=== PATIENT | male | born 1955 | race Caucasian/White ===

== ENCOUNTER 2017-01-09 06:35 | Emergency (ER) | payer BC ==
[2017-01-09 06:44] VITALS: BP 171/99
[2017-01-09] MEDS ORDERED: HYDROmorphone 0.5 MG/0.5 ML Syringe IVPUSH ONE (06:45)
[2017-01-09] MEDS ORDERED: Ketorolac 30 MG/ML SDV IVPUSH SCH (06:45)
[2017-01-09] MEDS ORDERED: Sodium Chloride 0.9% 1,000 ML IV SCH (06:45)
[2017-01-09] MEDS ORDERED: Metoclopramide 10 MG/2 ML SDV IVPUSH ONE (06:45)
--- NOTE | 2017-01-09 06:46 | EDM.PDOC ---
ED HPI GENERAL MEDICAL PROBLEM - General Chief Complaint: Genitourinary Problem Stated Complaint: BACK PAIN POSS KIDNEY STONE Time Seen by Provider: 01/09/17 06:39 Source of Information: Reports: Patient History Limitations: Reports: No Limitations - History of Present Illness INITIAL COMMENTS - FREE TEXT/NARRATIVE: 61-year-old male presents to the ED with acute onset of severe left flank pain that started in the night the day prior. 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 Tomorrow awake most of the night is vomited 3 times. Pain has not radiated into the abdomen or down into the groin. He has no history of kidney stones. No injuries to his back. No associated fever or chills. No no noted changes in color of the urine. Onset: Sudden Onset Date: 01/08/17 Duration: Hour(s):, Getting Worse Location: Reports: Back Quality: Reports: Ache, Stabbing, Throbbing Severity: Severe (Current pain is rated as 8-9 out of 10.) Improves with: Reports: None Worsens with: Reports: None Context: Denies: Activity, Exercise, Lifting, Sick Contact, Trauma, Other Associated Symptoms: Reports: Nausea/Vomiting (Vomited 3 times overnight.). 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 (Motrin seems to take the edge off the pain.) Left Flank Pain Score (Numeric/FACES): 7 - Related Data Allergies Allergy/AdvReac Type Severity Reaction Status Date / Time No Known Allergies Allergy Verified 01/09/17 06:44 Home Meds: Home Meds Ondansetron [Zofran ODT] 4 mg PO Q6H #5 tab.dis 01/09/17 [Rx] oxyCODONE HCl/Acetaminophen [Percocet 5-325 mg Tablet] 1 - 2 each PO Q4H PRN # 12 tablet 01/09/17 [Rx] Social & Family History - Living Situation & Occupation Living situation: Reports: Occupation: Employed ED ROS GENERAL - Review of Systems Review Of Systems: See Below Constitutional: Reports: Fatigue. Denies: Fever, Chills, Malaise, Weakness HEENT: Reports: No Symptoms (From not sleeping all night.) Respiratory: Reports: No Symptoms Cardiovascular: Reports: No Symptoms Endocrine: Reports: No Symptoms GI/Abdominal: Reports: No Symptoms. Denies: Abdominal Pain : Reports: Frequency, Urgency Musculoskeletal: Reports: Back Pain (Left flank constant throbbing pain with occasional worsening of the pain I colicky component) Skin: Reports: No Symptoms Neurological: Reports: No Symptoms Psychiatric: Reports: No Symptoms ED EXAM, RENAL/ - Physical Exam Exam: See Below Exam Limited By: No Limitations General Appearance: Alert, Moderate Distress (In obvious pain and discomfort.) Eye Exam: Bilateral Eye: Normal Inspection (No jaundice.) Throat/Mouth: Normal Inspection, Normal Oropharynx Head: Atraumatic, Normocephalic Neck: Normal Inspection, Supple, Non-Tender, Full Range of Motion. No: Lymphadenopathy (L), Lymphadenopathy (R) Respiratory/Chest: No Respiratory Distress, Lungs Clear, Normal Breath Sounds, No Accessory Muscle Use Cardiovascular: Normal Peripheral Pulses, Regular Rate, Rhythm, No Edema, No Gallop, No Murmur GI/Abdominal: Normal Bowel Sounds, Soft, Non-Tender, No Organomegaly (Male) Exam: No Hernia Back Exam: CVA Tenderness (L). No: CVA Tenderness (R) (Mild), Decreased Range of Motion, Muscle Spasm Extremities: Normal Inspection, Normal Range of Motion, Non-Tender, No Pedal Edema, Normal Capillary Refill Neurological: Alert, Oriented, CN II-XII Intact, Normal Cognition, Normal Gait Psychiatric: Normal Affect, Normal Mood Skin Exam: Warm, Dry, Intact, Normal Color, No Rash Course - Vital Signs Last Recorded V/S: Last Vital Signs Temp 36.2 C 01/09/17 06:42 Pulse 87 01/09/17 06:42 Resp 16 01/09/17 06:42 BP 171/99 H 01/09/17 06:42 Pulse Ox 95 01/09/17 06:42 - Orders/Labs/Meds Orders: Active Orders 24 hr Category Date Time Status Abdomen Pelvis wo Cont [CT] Stat Exams 01/09/17 06:39 Ordered URINALYSIS W/MICROSCOPIC [UA W/MICROSCOPIC] [URIN] Stat Lab 01/09/17 06:46 Uncollected Ketorolac [Toradol] Med 01/09/17 06:45 Active 30 mg IVPUSH ONETIME Sodium Chloride 0.9% [Normal Saline] 1,000 ml Med 01/09/17 06:45 Active IV ASDIRECTED Medication Orders Sodium Chloride (Normal Saline) 1,000 mls @ 150 mls/hr IV ASDIRECTED SILVANO Ketorolac Tromethamine (Toradol) 30 mg IVPUSH ONETIME SILVANO Meds: Medications Generic Name Dose Route Start Last Admin Trade Name Freq PRN Reason Stop Dose Admin Sodium Chloride 1,000 mls @ 150 mls/hr 01/09/17 06:45 Normal Saline IV ASDIRECTED SILVANO Ketorolac Tromethamine 30 mg 01/09/17 06:45 Toradol IVPUSH ONETIME SILVANO Discontinued Medications Generic Name Dose Route Start Last Admin Trade Name Freq PRN Reason Stop Dose Admin Hydromorphone HCl 0.25 mg 01/09/17 06:45 Dilaudid IVPUSH 01/09/17 06:46 ONETIME ONE Metoclopramide HCl 7.5 mg 01/09/17 06:45 Reglan IVPUSH 01/09/17 06:46 ONETIME ONE - Radiology Interpretation Free Text/Narrative:: 61-year-old male attends the ED with acute onset of left flank pain yesterday morning. He worked throughout the day yesterday but after he got off work the pain intensified substantially. He was unable to sleep most of last night. He's vomited 3 times in the last 6 hours. Pain is currently 9 of the 10. Motrin has helped up until this morning. Clinically he appears to be experiencing left renal colic. He has no history of renal stones. Benign abdominal examination although hypoactive bowel sounds are evident. Plan CT of the abdomen and pelvis per renal protocol given IV fluids 150 mils per hour and Toradol 30 mg IV with Dilaudid 0.25 mg IV and Reglan 7.5 mg IV. - Re-Assessments/Exams Free Text/Narrative Re-Assessment/Exam: 01/09/17 07:18 CT scan of abdomen and pelvis performed. Gallbladder and liver appear normal pancreas appears normal. The right kidney also appears normal. The left kidney is grossly enlarged with significant perinephric hydronephrosis and fluid. There is a 2 mm stone obstructing the distal ureter. Stone has proximal be an inch to travel before would be in the urinary bladder. Patient will continue Motrin 600 mg every 6 hours with Percocet one tablet every 6 hours if needed for pain relief Zofran 4 mg under the tongue every 4-6 hours needed for nausea relief. Urine to identified that the stone has indeed passed. Of note there is a small 2 mm stone within the left renal parenchyma that may be problematic in the future. He was advised of these findings. Departure - Departure Time of Disposition: 07:19 Disposition: Home, Self-Care 01 Condition: Fair Clinical Impression: Renal colic on left side - Discharge Information Prescriptions: Ondansetron [Zofran ODT] 4 mg PO Q6H #5 tab.dis oxyCODONE HCl/Acetaminophen [Percocet 5-325 mg Tablet] 1 - 2 each PO Q4H PRN # 12 tablet PRN Reason: pain relief. Additional Instructions: Evaluation in the emergency room this morning in regards to severe left flank pain without any radiation of pain into the abdomen or groin. History was compatible with kidney stone. He to the abdomen pelvis performed reveals a good deal of obstruction on the left side. The left kidney is markedly swollen with significant perinephric stranding or edema fluid around the kidney indicating that obstruction is been present for a significant period of time. A 2 mm stone is evident in the lower part of the ureter and has approximately three quarters of an inch to travel before would be in her urinary bladder. We will pass on its own sometime likely in the next 48 hours. Change in drink plenty of fluids. Suggest Motrin 600 mg every 6 hours with Percocet 5/3/25 milligram tablet for pain relief every 4-6 hours as needed for pain Zofran 4 mg of the tongue every 4 -6 hours to ensure no further nausea or vomiting. There is one small stone within the left renal kidney tissue that may be problematic in the future. No stones were identified on the right side. The remainder of the CT of the abdomen in terms of liver gallbladder pancreas and bowel appear to be normal. - My Orders Last 24 Hours: My Active Orders 01/09/17 06:39 Abdomen Pelvis wo Cont [CT] Stat 01/09/17 06:45 Ketorolac [Toradol] 30 mg IVPUSH ONETIME Sodium Chloride 0.9% [Normal Saline] 1,000 ml IV ASDIRECTED 01/09/17 06:46 URINALYSIS W/MICROSCOPIC [UA W/MICROSCOPIC] [URIN] Stat - Assessment/Plan Last 24 Hours: My Active Orders 01/09/17 06:39 Abdomen Pelvis wo Cont [CT] Stat 01/09/17 06:45 Ketorolac [Toradol] 30 mg IVPUSH ONETIME Sodium Chloride 0.9% [Normal Saline] 1,000 ml IV ASDIRECTED 01/09/17 06:46 URINALYSIS W/MICROSCOPIC [UA W/MICROSCOPIC] [URIN] Stat
--- NOTE | 2017-01-09 17:55 | CT ---
CT abdomen and pelvis Technique: Multiple axial sections were obtained from above the dome of the diaphragm inferiorly through the pubic symphysis. Intravenous and oral contrast not utilized. Study has been performed as a ureteral stone protocol. Comparison: No previous study. Findings: Inflammatory change is noted around the left kidney and around the left ureter. There is small amount of fluid within the lower left pararenal space compatible with rupture of the left collecting system. Hydronephrosis is seen of the left ureter and renal pelvis. These findings are caused by an approximate 3 mm stone within the distal left ureter occurring approximately 1.5 cm proximal to the UVJ. No other abnormal calcifications are seen along the course of the ureters. Several small nonobstructing calculi are seen within the left kidney. Probable parapelvic cysts are present within the left kidney. Visualized lung bases show nothing acute. Noncontrast appearance of the liver and spleen appear within normal limits. Pancreas appears within normal limits. Adrenal glands show no nodule. Aorta shows no aneurysmal dilatation. No retroperitoneal adenopathy or mesenteric abnormalities are seen. No pelvic mass or adenopathy is seen. Appendix is seen which appears normal. No pelvic mass or adenopathy is seen. Bone window settings were reviewed which appear within normal limits for the patient's age. Impression: 1. Obstructing stone within the distal left ureter as described above. 2. Other incidental findings. Diagnostic code #3 Agree with preliminary report issued by [facility] ([facility] preliminary report dictated on 01/09/17, 8:13 AM Central Time)
== END 2017-01-09 07:45 | disposition home or self-care (01) ==
LOC: JD.ED 06:35
DX: N13.2 Hydronephrosis with renal and ureteral calculous obstruction (principal)
CPT/HCPCS: 74176; 81001; 96361; 96374; 96375; 99284; J1885; J2765; J7040

== ENCOUNTER 2017-01-16 18:13 | Emergency (ER) | payer BC ==
[2017-01-16 18:39] VITALS: BP 175/109
[2017-01-16] MEDS ORDERED: Ondansetron 4 MG/2 ML SDV IVPUSH ONE (18:50)
[2017-01-16] MEDS ORDERED: HYDROmorphone 1 MG/ML Syringe IVPUSH ONE ×2 (18:50)
[2017-01-16] MEDS ORDERED: Ketorolac 30 MG/ML SDV IVPUSH ONE (18:50)
--- NOTE | 2017-01-16 19:40 | EDM.PDOC ---
ED HPI GENERAL MEDICAL PROBLEM - General Chief Complaint: Flank Pain Stated Complaint: Flank pain Time Seen by Provider: 01/16/17 18:40 Source of Information: Reports: Patient, Old Records, RN Notes Reviewed History Limitations: Reports: No Limitations - History of Present Illness INITIAL COMMENTS - FREE TEXT/NARRATIVE: 61 year old male presents to the ED today with complaints of sudden onset of left flank pain that started around noon today. He has associated nausea but no vomiting. He denies dysuria, frequency, urgency or hematuria. He was diagnosed with a kidney stone on 01/09/17. The CT showed a 3mm stone which the patient reports passing. The CT also showed 1 non-obstructing stone within the left kidney. He passed the stone shortly after his previous ED visit and was doing well until today. No fever or chills. He is out of the pain and nausea medication that was prescribed at his last visit. Left Flank Pain Score (Numeric/FACES): 10 - Related Data Allergies Allergy/AdvReac Type Severity Reaction Status Date / Time No Known Allergies Allergy Verified 01/09/17 06:44 Home Meds: Home Meds Ondansetron [Zofran ODT] 4 mg PO Q6H #5 tab.dis 01/09/17 [Rx] oxyCODONE HCl/Acetaminophen [Percocet 5-325 mg Tablet] 1 - 2 each PO Q4H PRN # 12 tablet 01/09/17 [Rx] Ondansetron HCl [Zofran] 4 mg PO Q8H PRN #15 tablet 01/16/17 [Rx] oxyCODONE HCl/Acetaminophen [Oxycodone-Acetaminophen 5-325] 1 - 2 each PO Q4H PRN #20 tablet 01/16/17 [Rx] Past Medical History - Past Health History Medical/Surgical History: Denies Medical/Surgical History Social & Family History - Tobacco Use Smoking Status *Q: Never Smoker - Caffeine Use Caffeine Use: Reports: None - Recreational Drug Use Recreational Drug Use: No - Living Situation & Occupation Living situation: Reports: Occupation: Employed ED ROS GENERAL - Review of Systems Review Of Systems: See Below Constitutional: Reports: No Symptoms. Denies: Fever, Chills, Diaphoresis Respiratory: Reports: No Symptoms Cardiovascular: Reports: No Symptoms GI/Abdominal: Reports: Nausea. Denies: Abdominal Pain, Vomiting : Reports: Flank Pain. Denies: Dysuria, Frequency, Hematuria, Urgency ED EXAM, RENAL/ - Physical Exam Exam: See Below Exam Limited By: No Limitations General Appearance: Alert, WD/WN, Moderate Distress Respiratory/Chest: No Respiratory Distress, Lungs Clear, Normal Breath Sounds Cardiovascular: Regular Rate, Rhythm GI/Abdominal: Normal Bowel Sounds, Soft, Non-Tender Back Exam: Normal Inspection, Full Range of Motion, CVA Tenderness (L). No: CVA Tenderness (R) Course - Vital Signs Last Recorded V/S: Last Vital Signs Temp 97.9 F 01/16/17 18:38 Pulse 91 01/16/17 18:38 Resp 20 01/16/17 18:38 BP 175/109 H 01/16/17 18:38 Pulse Ox 96 01/16/17 18:38 - Orders/Labs/Meds Labs: Laboratory Tests 01/16/17 Range/Units 18:55 Urine Color Yellow (Yellow) Urine Appearance Clear (Clear) Urine pH 6.0 (5.0-8.0) Ur Specific [place] > or = 1.030 (1.005-1.030) Urine Protein 1+ H (Negative) Urine Glucose (UA) Negative (Negative) Urine Ketones Trace H (Negative) Urine Occult Blood Negative (Negative) Urine Nitrite Negative (Negative) Urine Bilirubin Negative (Negative) Urine Urobilinogen 0.2 (0.2-1.0) Ur Leukocyte Esterase Negative (Negative) Urine RBC 0-5 (0-5) /hpf Urine WBC 0-5 (0-5) /hpf Ur Epithelial Cells 0-5 (0-5) /hpf Urine Bacteria Few (FEW) /hpf Urine Mucus Moderate H (FEW) /hpf Meds: Medications Discontinued Medications Generic Name Dose Route Start Last Admin Trade Name Freq PRN Reason Stop Dose Admin Hydromorphone HCl 1 mg 01/16/17 18:50 01/16/17 19:06 Dilaudid IVPUSH 01/16/17 18:51 Not Given ONETIME ONE Hydromorphone HCl 0.5 mg 01/16/17 18:50 01/16/17 19:05 Dilaudid IVPUSH 01/16/17 18:51 0.5 mg ONETIME ONE Administration Ketorolac Tromethamine 30 mg 01/16/17 18:50 07/09/17 19:08 Toradol IVPUSH 01/16/17 18:51 30 mg ONETIME ONE Administration Ondansetron HCl 4 mg 01/16/17 18:50 01/16/17 19:10 Zofran IVPUSH 01/16/17 18:51 4 mg ONETIME ONE Administration - Re-Assessments/Exams Free Text/Narrative Re-Assessment/Exam: Discussed risk versus benefit of repeat CT scan. Considering the previous CT showed a very small "punctate" stone within the left kidney, I suspect that he is passing this stone. Shared decision making utilized and patient wishes to hold off on CT for now and give the stone time to pass. Repeat UA reveals hematuria with a small amount of WBCs but no leukocytes or nitrites. Prescriptions for Zofran and Percocet sent to [facility]. He is going on vacation next week and is requesting prescriptions to take with incase his symptoms return. He will follow-up in ER or clinic if symptoms have not resolved in 2-3 days. Patient is agreeable to treatment plan. Departure - Departure Time of Disposition: 19:38 Disposition: Home, Self-Care 01 Condition: Good Clinical Impression: Renal colic on left side - Discharge Information Prescriptions: Ondansetron HCl [Zofran] 4 mg PO Q8H PRN #15 tablet PRN Reason: Nausea/Vomiting oxyCODONE HCl/Acetaminophen [Oxycodone-Acetaminophen 5-325] 1 - 2 each PO Q4H PRN #20 tablet PRN Reason: Pain Referrals: PCP,None [Primary Care Provider] - Forms: ED Department Discharge Additional Instructions: Drink plenty of fluids Strain urine Ibuprofen 600mg every 8 hours as needed for mild pain Percocet 1-2 tabs every 4-6 hours as needed for more severe pain Zofran 1 tab every 8 hours as needed for nausea Follow-up or return to ER if your symptoms do not improve or if you have not passed a stone in 48 hours, sooner if symptoms worsen or you develop a fever.
== END 2017-01-16 19:50 | disposition home or self-care (01) ==
LOC: JD.ED 18:13
DX: N23 Unspecified renal colic (principal)
CPT/HCPCS: 81001; 96374; 96375; 99284; J1170; J1885; J2405; 99283